=== PATIENT | female | born 1975 | race Caucasian/White ===

== ENCOUNTER 2016-06-08 09:40 | Day surgery (SDC) | payer OTHER ==
[~2016-06-08] VITALS: Ht 172.7 cm; Wt 68.0 kg
[~2016-06-08 09:40] MED LIST: BUSP7.5T5 PO; CHOL100045 PO; DICL100G26 TOPICAL; IBUP800T28 PO; LEVO125T6 PO; LISI10TA PO; LORA5TAB8 PO
[2016-06-08] MEDS ORDERED: MethylprednisoLONE Depot 80 mg/mL Inj ONE (09:41)
[2016-06-08] MEDS ORDERED: Iohexol 240 mg/mL 10 mL Inj ONE (09:41)
[2016-06-08 10:48] VITALS: BP 125/75; PULSE 82; RESP 16; O2SAT 100
--- NOTE | 2016-06-08 16:54 | PCM.PROC ---
Procedure Note Date of Service: Jun 08, 2016 Pre Procedure Diagnosis: PROCEDURE: Lumbar Interlaminar epidural steroid injection. RIGHT paramedian L4- L5 ASA / ANTI-COAGULATION . No asa x 7 days. PRE-PROCEDURE DIAGNOSIS: Lumbar radiculopathy POST-PROCEDURE DIAGNOSIS: same INDICATION: 40-year-old female with RIGHT leg pain consistent with lumbar radiculopathy PERFORMED BY: Demetri Keith MD DESCRIPTION OF PROCEDURE: Patient was met in the holding area. Consent was signed, site was confirmed and all questions were answered. Patient was taken to the procedure suite and placed prone on the procedure table. Area was prepped and draped in sterile fashion. Local anesthesia with 1% lidocaine was injected. An 18-gauge Touhy needle was advanced toward the interlaminar space using fluoroscopic guidance after optimizing the AP view. A loss of resistance syringe was attached as we approached the epidural space in the lateral view. After [id number] was obtained, radioopaque contrast was injected under live fluro which confirmed epidural placement without intravascular uptake. Then , 80 mg depomedrol was injected without difficulty. ANESTHESIA: Local. EBL: None. No Blood Products Used COMPLICATIONS: None SPECIMENS: None POST-PROCEDURE DISPOSITION: Patient was returned to the holding area in stable condition. They were discharged home when all discharge criteria were met. Evaluation/Physical Exam before discharge revealed: DISCHARGE MEDICATIONS: FOLLOW UP: Return to clinic in approximately 6 weeks after she has completed her EMG/NCS and had her rheumatology consult. Demetri Maza MD, MD Jun 08, 2016 16:54
== END 2016-06-08 23:59 | disposition home or self-care (01) ==
LOC: END 09:40
PROVIDERS: ATTEND Anesthesiology Pain Medicine
DX: M54.16 Radiculopathy, lumbar region (principal)
CPT/HCPCS: 62323; J1040